=== PATIENT | female | born 2000 | race Hispanic/Latino ===

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

== ENCOUNTER 2025-02-01 05:05 | Emergency (ER) | payer OTHER ==
[2025-02-01] MEDS ORDERED: diphenhydrAMINE 50 MG/ML VIAL ONE (05:38)
[2025-02-01] MEDS ORDERED: Metoclopramide HCl 10 MG (2 mL) VIAL ONE (05:38)
[2025-02-01 05:42] LABS: #Basophils 0.08 10x3/uL (0.0-0.2); #Eosinophils 0.08 10x3/uL (0.0-0.7); #Monocytes 0.75 10x3/uL (0.11-0.59); #Neutrophils 13.49 10x3/uL (1.40-6.50); %Basophils 0.5 % (0.0-1.0); %Eosinophils 0.5 % (0.0-10.0); %Lymphocytes 6.9 % (21.0-51.0); %Monocytes 4.7 % (0.0-10.0); %Neutrophils 84.9 % (42.0-75.0); Hematocrit 34.7 % (36.0-47.0); Hemoglobin 11.7 g/dL (12.0-16.0); Mean Corpuscular Hemoglobin 30.2 pg (27.0-31.0); Mean Corpuscular Volume 89.4 fL (78.0-98.0); Platelet Count 344 10x3/uL (130-400); Red Blood Cell (RBC) Count 3.88 mill/uL (4.20-5.40); White Blood Cell (WBC) Count 15.88 10x3/uL (4.8-10.8)
[2025-02-01 05:59] LABS: ALT (SGPT) 18 U/L (Less than 34); AST (SGOT) 26 U/L (11-34); Albumin 2.3 g/dL (3.1-4.5); Alkaline Phosphatase 100 U/L (40-110); Anion Gap 19 mmol/L (10-20); BUN (Urea Nitrogen) 12 mg/dL (7.0-18.7); Bilirubin, Total 0.4 mg/dL (0.3-1.2); Calc. Creatinine Clearance 0 mL/min (70-130); Calcium 9.2 mg/dL (7.8-10.44); Carbon Dioxide 23 mmol/L (22-29); Chloride 101 mmol/L (98-107); Globulin 4.6 g/dL (2.4-3.5); Glucose 104 mg/dL (70-105); Lipase 24 U/L (8-78); Potassium 3.8 mmol/L (3.5-5.1); Sodium 139 mmol/L (136-145)
[2025-02-01 08:32] LABS: CAUTI Indications for Culture Pelvic or flank pain; Glucose, Urine (Dipstick) Normal (Negative); Leukocyte 25 Leu/uL (Negative); Protein, Urine (Dipstick) 10 mg/dL (Neg-Trace); Specific Gravity, Urine 1.014 (1.002-1.036)
[2025-02-01] MEDS ORDERED: Ondansetron PF 4 MG/2 ML Vial ONE (08:34)
[2025-02-01 08:36] LABS: Bacteria/HPF Rare-Few HPF (None Seen)
[2025-02-01 08:38] LABS: Urine Culture Reflex No No
[2025-02-01] MEDS ORDERED: Clindamycin/D5W 900 MG in Premix 1 BAG IVPB SCH (08:45)
[2025-02-01] MEDS ORDERED: Magnesium 2 GM/50 ML BAG (IN WATER) ONE (09:18)
[2025-02-01] MEDS ORDERED: Iopamidol-370 76% 500 ML MDV (1 ML CHARGE) ONE (11:58)
== END 2025-02-01 10:51 | disposition short-term general hospital (02) ==
LOC: ERS 05:05
DX: O99.63 Diseases of the digestive system complicating the puerperium (principal); K50.90 Crohn's disease, unspecified, without complications; O14.95 Unspecified pre-eclampsia, complicating the puerperium
CPT/HCPCS: 71045; 71275; 74018; 74177; 80053; 81001; 83605; 83690; 83880; 84484; 85025; 87040; 87149; 93005; 96361; 96365; 96366; 96367; 96368; 96375; J1200; J1580; J2270; J2405; J2765; J3475; J3490; Q9967